=== PATIENT | male | born 1975 | race Caucasian/White ===

== ENCOUNTER 2016-12-16 15:26 | Outpatient (RCR) | payer OTHER | END 2017-03-16 | LOC: WSOH | DX: S61.203A Unspecified open wound of left middle finger without damage to nail, initial encounter (principal); W27.0XXA Contact with workbench tool, initial encounter; Y99.0 Civilian activity done for income or pay ==

== ENCOUNTER → 2016-12-16 | Outpatient (REF) | LOC: WSOH 16:00 | DX: Z01.83 Encounter for blood typing (principal) ==

== ENCOUNTER 2017-06-10 14:35 | Outpatient (RCR) | payer OTHER | END 2017-07-28 08:03 | disposition still patient (30) | LOC: WSOH 14:35 | DX: S01.91XA Laceration without foreign body of unspecified part of head, initial encounter (principal); W24.0XXA Contact with lifting devices, not elsewhere classified, initial encounter; Y99.0 Civilian activity done for income or pay ==

== ENCOUNTER → 2017-06-10 | Outpatient (REF) | LOC: WSOH 14:43 | DX: Z02.89 Encounter for other administrative examinations (principal) ==